=== PATIENT | male | born 1960 | race Caucasian/White ===

== ENCOUNTER → 2020-03-23 08:45 | Outpatient (CLI) | payer OTHER, SELFPAY ==
[2020-03-24 01:54] LABS: COVID19 Sendout Not Detected (Not Detect)
== END ==
PROVIDERS: Visit Provider Physician Assistant
DX: Z11.59 Encounter for screening for other viral diseases (principal)
CPT/HCPCS: 87635

== ENCOUNTER 2023-06-22 06:25 | Day surgery (SDC) | payer OTHER, SELFPAY ==
[2023-06-14 09:49] VITALS: BMI 33.7
[2023-06-22] VITALS (10 sets, daily range): BP systolic 92–137; BP diastolic 64–81; PULSE 52–75; RESP 12–24; TEMP 36.1–36.8; O2SAT 90–97; BMI 33.7
--- NOTE | 2023-06-22 06:00 | DI.RAD.S_ITS ---
PROCEDURE: XR KNEE LT 1TO2V INDICATIONS: TKA TECHNIQUE: 2 view(s) of the knee acquired. COMPARISON: [facility], , KNEE 1-2 VIEWS RIGHT, 02/26/2008, 8:13. FINDINGS: Bones: Patient is status post knee joint arthroplasty. Hardware components are in expected positions. Visualized bony structures are intact. Soft tissues: Overlying postoperative changes are noted. IMPRESSION: Satisfactory appearance of left total knee replacement. Dictated by: Bartolo Vega M.D. on 06/22/2023 at 12:10 Approved by: Bartolo Vega M.D. on 06/22/2023 at 12:12
[2023-06-22] MEDS: ACETAMINOPHEN 325 MG TABLET 975 MG PO (07:00)
[2023-06-22] MEDS: PREGABALIN 75 MG CAPSULE PO (07:01)
[2023-06-22] MEDS: LACTATED RINGERS 1,000 ML 42 ML IV (07:01)
[2023-06-22] MEDS: CELECOXIB 200 MG CAPSULE PO (07:01)
--- NOTE | 2023-06-22 07:16 | SUR.OPER ---
Supine on padded OR bed. Pillow under head, arms secured on padded armboards <90 degree abduction. Safety belt across torso. Non-operative leg secured with tape over blanket over lower leg. Operative leg secured in DeMayo/Leon/Nathe positioner. Foam padded brace at thigh of operative leg.
--- NOTE | 2023-06-22 07:25 | PM.PREOP ---
Pre-operative Note Interval Note History & Physical reviewed/Exam performed by Physician: Yes Changes to H&P: No
[2023-06-22] MEDS: CEFAZOLIN VIAL 3 GM in SODIUM CHLORIDE 0.9% 100 ML IV (07:50)
[2023-06-22] MEDS: TRANEXAMIC ACID 1,000 MG VIAL 1000 MG INJ ×2 (07:58→10:03)
[2023-06-22] MEDS: BUPIVACAINE LIPOSOME 266 MG/20 ML VIAL INJ (08:45)
[2023-06-22] MEDS: BUPIVACAINE 0.25% (PF) 60 ML, EPINEPHrine 0.3 MG INJ (08:45)
--- NOTE | 2023-06-22 10:09 | PM.OP.1 ---
Operative Date/Time/Diagnoses Date of procedure: 06/22/23 Time of procedure: 08:00 Pre-op diagnosis: Left knee arthritis Post-op diagnosis: same Procedure & Clinicians Procedure: Left total knee arthroplasty CPT code 26740 Same procedure as scheduled: Yes Indications: The patient is a 63-year-old male with end-stage [id number] knee arthritis. The patient has a significant varus knee arthritis. They have failed conservative treatment with activity modifications, injections, physical therapy and bracing. They has been indicated for total knee replacement. The risks and benefits of the procedure have been discussed with the patient even opportunity to ask questions. The risks of surgery include but are not limited to infection, malunion, nonunion, fracture, loosening, persistence of pain, damage to nerves and blood vessels, need for additional procedures, DVT, PE, cardiopulmonary complications and . The patient expressed a thorough understanding of the risks and benefits of surgery and has elected to proceed. Consent was signed During the operation the services of physician assembler surgical garment were medically indicated and necessary to provide the exposure of the operative site for the surgical procedure and to maintain the limb in a proper position to carry out the procedure safely and efficiently. Without a qualified temporary administrative assistant being present this would extend the operative procedure and would have made the procedure more technically difficult to perform. The assembler surgical garment was medically necessary for the proper positioning, retraction and manipulation of the limb, proper exposure, and manipulation of the tissue for implantation implants and closure. Surgeon: Bernice Urbano Screw Machine Operator Swiss Type: Thu Connor Anesthesia Type: General, Spinal and Local Operative Notes Findings: Tricompartmental knee arthritis severe involvement medial compartment consistent with a varus knee pattern arthritis Closure Type: primary Prosthetic devices, grafts, tissues, transplants, or devices: Cuadra and nephew journey bCS total knee. Femur Oxinium size 8, tibia size 6, poly 9 mm, patella 35 x 9 mm round Estimated Blood Loss (mL): 30 Blood products transfused: none Tourniquet time (min): 98 Procedure in detail: Patient was seen in the preoperative area where the patient and site of surgery were identified in the operative knee was marked informed consent confirmed. This was the left knee. Patient received the appropriate preoperative antibiotics this was 3 g of Ancef. And other preoperative medications and was taken to the operating room placed on operating table in the supine position. Spinal anesthetic were administered. The operative extremity was then prepped and draped in the standard sterile fashion with a nonsterile tourniquet high on the thigh. Patient was placed on the green foam bolsters. A lateral post was placed at the level of the proximal thigh /trochanter area as a lateral post. Formal time-out procedure was performed confirming the patient's side and site of surgery and administration of appropriate preoperative antibiotics and implants were in the room accounted for. All were in agreement. Patient received a preoperative dose of tranexamic acid and then a 2nd dose at tourniquet release Patient was prepped and draped in the standard sterile fashion and the foot was placed into the leg soler. This was taken into high flexion and the incision was marked out over the anterior knee to the level of the medial tubercle tubercle. The Esmarch was then used for exsanguination and the tourniquet was inflated to 250 mmHg. Was made through the skin and subcutaneous tissue in high flexion this was then brought down into 30? of flexion for the medial parapatellar arthrotomy. A marker pen was used to mohamud the arthrotomy site for later repair. Joint fluid was evacuated. The anterior osteophytes and soft tissues were removed. Routine medial release was initially made along the medial proximal tibia with Bovie. The patella was 1st cut using the saw sized and prepped and then subluxed throughout the case and protected. The leg was then taken into extension and the patella was everted and the patella was cut to accommodate the patellar button. This was sized to a 35 mm button for a 9 mm thickness to recreate the original dimensions of the patella. Poly was removed and the protector replaced and the patella was subluxed and the knee was taken back up into flexion and attention was returned to the femur. Then the rotational landmarks of Whitesides line and the trans epicondylar axis were marked on the femur with electrocautery. Then the intramedullary guide for the femur was created. The distal femoral cut was made in 6? of valgus using the intramedullary guide with the cut setting on 2+. The ACL and PCL released. The proximal tibia was then cut using the intramedullary guide, taking 9 mm off the less involved side this was the lateral plateau. The Clifford wing was used to check the slope through the guide. Second pass was made through the tibial cut guide with the saw after the cut tibia was removed plane down about 1 more mm and further smooth then the resection surface. In extension remainders of the medial and lateral menisci were removed. The extension flexion gaps were then checked using both the flexion extension blocks. And was selected for a 9 mm poly femur was then sized and the rotation set using the posterior condyle referencing 3? of external rotation. There was just a touch tight in flexion therefore the block was shifted 1 mm anteriorly. This was checked with the Clifford wing. This measured a size 8. Cut block was then placed and the anterior, posterior and chamfer cuts were then made. The posterior osteophytes and soft tissues were then removed. Then in extension the posterior capsule was injected with a mixture of 40 mL of 0.25% Marcaine and 20 mL of Exparel care to avoid excessive injection posterior laterally. The remainder of this was saved for the capsule and subcutaneous tissue and placed during cement curing. Attention was then returned to the tibia and this was prepared with the rotation set by the extramedullary guide. Lined up with the tibial crest and the 2nd toe. The tibial trial was then pinned in place and the trial femoral components were placed. Then the intercondylar notch was cut through the femoral trial to create the box this was done with the distal than the proximal drill and then the box cut distally and then proximally. Next the insert was placed and the trial poly placed. This was stable in flexion and extension and there was a 0-135 degree range of motion. The tibia was then finished with the drill and flange cuts and then this was removed. All trials were removed. The wound and bone was irrigated with pulsatile lavage. This was then dried with a sponge. The components were verified and opened and the cement was mixed. Cement was applied to the components and then to the bone then the tibia was cemented in place 1st followed by the femur then the patella. Excess cement was removed. With care looking around the back of the knee. Remainder of the injection was injected around the capsule. trial poly was placed back in the leg was placed into extension for the patellar cementing. After this was cured approximately 15 minutes later and the dilute Betadine solution was placed for at least 3 minutes in the wound this was then irrigated out and the final poly was placed. This was a 9 mm poly. The tourniquet was released hemostasis was achieved. Final g of tranexamic acid was given IV at the time of tourniquet release. The capsule was closed with 1. Ethibond suture. And the Quill stitch. Subcutaneous layer was closed with 3-0 Vicryl suture. Skin was closed with a running V lock suture Stratafix Monocryl type suture and Dermabond. An Aquacel dressing was placed. An Sherwin wrap was applied. Anesthetic was terminated the patient was woken from anesthesia and taken to recovery room in good condition. There no immediate complications from this procedure. The patient will be maintained on a standard total knee replacement protocol with weight-bearing as tolerated. Complications: none Post-operative Condition: stable Disposition: PACU Plan for aftercare: Weightbear as tolerated, range of motion immediately as tolerated. Commence physical therapy were then 1 week. May shower. Keep Aquacel part of dressing intact until follow-up. Take aspirin 81 mg b.i.d. for DVT prophylaxis for 6 weeks.
[2023-06-22] MEDS: OXYCODONE IR 5 MG TABLET PO ×3 (10:27→15:59)
[2023-06-22] MEDS: HYDROMORPHONE 1 MG INJ IV (10:32)
[2023-06-22] MEDS: LACTATED RINGERS 1,000 ML 100 ML IV (11:00)
[2023-06-22] MEDS: ACETAMINOPHEN 325 MG TABLET 650 MG PO (12:33)
--- NOTE | 2023-06-22 13:35 | PT.IIE ---
Current Diagnoses Unilateral primary osteoarthritis, left knee (06/22/23) Surgery Performed Operation Date: 06/22/23 07:45 Actual Procedures p Total Knee Arthroplasty(Left) - Bernice Urbano MD Surgical History (Last Updated 06/14/23 @ 10:09 by Aye Lopez, RN) Hx of appendectomy Hx of arthroscopy of right knee Hx of tonsillectomy Medical History (Last Updated 06/14/23 @ 10:09 by Aye Lopez RN) Hearing impaired HLD (hyperlipidemia) FABIANO on CPAP Osteoarthritis Tremor Physical Therapy Inpatient Evaluation/Re-Eval M1 PT/OT-IP Prior Functional Status Start: 06/22/23 14:56 Freq: NEEDED Status: Active Protocol: Document 06/22/23 13:35 AB (Rec: 06/22/23 15:16 AB [id number]) Medical Review Prior Functional Status Medical History Reviewed Yes Communication able to make needs known Mobility and Gait pt stated that he is indpenendent with all mmobilities and ambulation without AD Social History Household Members spouse Living Arrangements House Number of Floors (Floors) One Floor Number of Stairs To Enter/Railing? 6 steps to enter with B rails Home Environment High Toilet,Walk in Shower, Built-In Shower Seat Home Equipment Front Wheel Walker,Straight Cane M2 PT-IP Current Condition Start: 06/22/23 14:56 Freq: NEEDED Status: Active Protocol: Document 06/22/23 13:35 AB (Rec: 06/22/23 15:16 AB [id number]) Physical Therapy Current Condition Current Condition Evaluation Date 06/22/23 Treatment Diagnosis s/p L TKA; difficulty in walking Onset Date 06/22/23 M3 PT-IP Subjective Start: 06/22/23 14:56 Freq: NEEDED Status: Active Protocol: Document 06/22/23 13:35 AB (Rec: 06/22/23 15:16 AB [email or web address]) Subjective Physical Therapy Visit Type Type Initial Evaluation Visit Start Time 13:35 Visit Stop Time 14:51 Total Visit Minutes 76 Number of MEDICAL OFFICE WORKER Visits 0 Physical Therapy Visit Comments Patient Comments agreeable to do PT Therapy Pain Assessment Pain When Pain Assessed At Rest Pain Present Pain Present Pain Reported Location Left Knee Intensity 6 Scale Used Numeric (0 - 10) Description Spasm,Tightness Pain Management Techniques Distraction,Elevation, Modification of Treatment,Re- positioning,Timing of Activity with Medications M4 PT-IP Mobility and Gait Start: 06/22/23 14:56 Freq: NEEDED Status: Active Protocol: Document 06/22/23 13:35 AB (Rec: 06/22/23 15:16 AB [id number]) PT-Bed Mobility Assessment Supine to Sit Supine to Sit Standby Assistance PT-Transfer Assessment Sit to and From Stand Sit to and from Stand Contact Guard Assistance, Minimal Assistance,1 Person Assistance,Use of Upper Extremities Equipment Transfer Assistive Device Gait Belt,Front Wheeled Walker Orthotic/Prosthetic Devices or Brace: No Transfers Transfer Destination Chair Transfer Technique Stand Step Pivot Transfer Ability Level of Assist Contact Guard Assistance, Minimal Assistance,Use of Upper Extremities Comments Mobility Comments pt supine in bed. spouse in room. BP: 138/80. completed supine to sit SBA. able to sit on EOB SBA. c/o feeling sweaty/hot flashes. BP: 146/ 86. pt still without bladder control. assisted pt with brief management. pt completed sit to stand min A and cues and was able to maintain standing using FWW min A while assisted with brief. pt then completed step transfer to chair using FWW min A. (+) L knee slight buckling needing min A for stability. nurse provided pt with IV dilaudid. pt c/o feeling oozy afterwards. BP checked: 144/91. pt agreed to do more ambulation and stair climbing. educated pt regarding L quads activation. pt completed sit to stand from the chair CGA to min A and ambulated using FWW CGA to min A ~ 50 ft with cues for L quads activation. assited pt towards the stairs. educated pt and spouse regarding stair climbing techniques. pt's spouse stated that she had knee replacements before and is a nurse and that she knows how to assist pt. spouse was able to put safety belt on pt and assisted pt with sit to stand . pt completed up/down 3 steps using B rails min A with spouse assisting. pt repeated stair climbing again. pt ambulated back towards his room using FWW ~ 25 ft with spouse assisting. pt requiring increase time to complete all tasks and needs cues but alex was able to assist pt. assisted pt back to his room. spouse and pt without further concerns. OT took over pt's care. pt has outpt PT set up but stated that he did not get any pre-op PT . Gait Assessment Gait Gait Assistance Required: Contact Guard Assist,Minimum Assistance Distance (Feet) 50 Able to Maintain Weight Bearing Status Yes During Gait Assistive Devices Assistive Device Gait Belt,Front Wheeled Walker Orthotic/Prosthetic Devices or Brace: No Gait Deviations General Gait Pattern Antalgic,Decreased Stride Length,Decreased Feet Clearance,Step-to Gait Factors Limiting Gait Function Factors Limiting Gait Function Decreased Activity Tolerance, Decreased Strength,Limited Range of Motion,Pain,Poor Balance,Poor Safety Awareness Stair Climbing Assessment Evaluation Level of Assist On Stairs Minimal Assistance Devices Stair Climbing Assistive Devices Left Railing,Right Railing Technique/Endurance Stair Climbing Direction Ascend and Descend Stair Climbing Technique Step to Step Number of Steps Climbed 3 Query Text: Stair Climbing Set # Repetitions (reps) 2 PT-Balance Assessment Sitting Balance and Reactions Static Sitting Balance Ability Normal Dynamic Sitting Balance Ability Good Standing Balance and Reactions Static Standing Balance Ability Fair Dynamic Standing Balance Ability Fair Device Used FWW M5 PT-IP Objective Assessments Start: 06/22/23 14:56 Freq: NEEDED Status: Active Protocol: Document 06/22/23 13:35 AB (Rec: 06/22/23 15:16 AB [email or web address]) Orientation Orientation/Cognition Level of Alertness Alert Orientation Name,Place,Situation Language Function Ability No Deficits Noted Safety Awareness Understands Safety Issues Memory Description No Deficits Noted Gross Range of Motion Lower Extremity ROM Assessment Within Functional Limits Impairments L knee flexion: ~ 80 deg L knee extension: ~ 20 deg less to 0 Strength Lower Extremity Strength Assessment Left Impaired Hip 4-/5 Knee 3+/5 Coordination Assessment Gross Coordination Gross Coordination WNL Sensation Assessment Sensation Gross Sensation WNL Muscle Tone Muscle Tone WNL Yes M6 PT-IP Treatment Start: 06/22/23 14:56 Freq: NEEDED Status: Active Protocol: Document 06/22/23 13:35 AB (Rec: 06/22/23 15:16 AB [email or web address]) Physical Therapy Treatment Exercises Exercises Heel Slides Education Education Provided Precautions,Weight Bearing Status,Post-Op Packet,Safety M7 PT-IP Assessment and Plan Start: 06/22/23 14:56 Freq: NEEDED Status: Active Protocol: Document 06/22/23 13:35 AB (Rec: 06/22/23 15:16 AB [email or web address]) PT Summary Assessment and Plan Potential Rehabilitation Potential Fair Status of Condition at Evaluation Evolving Summary Impairments Pain,ROM,Strength,Balance,Bed Mobility,Transfers,Gait, Activity Tolerance Assessment Summary pt is a 63 y/o M who underwent L TKA and is WBAT. pt has outpt PT set up but did not receive any pre-op PT. pt requiring CGA to min A with mobility using FWW and caregiver training conducted. pt plans to go home with spouse to assist and spouse was able to safely assist. Goals Bed Mobility Goal Independent Transfer Goal Independent,Front Wheeled Walker Gait Goal Independent,Front Wheel Walker Gait Distance 250 Other Goals up/down 6 steps B rails mod I Days to Meet Goals 5 Frequency of Treatment Frequency Of Treatment Twice a Day Treatment Plan Physical Therapy Treatment Plan Bed Mobility Training,Transfer Training,Gait Training, Therapeutic Exercise,Balance Retraining,Post Op Education, Discharge Planning,Hot or Cold Pack,Neuromuscular Re-ed, Coordination Retraining,Manual Therapy Weight Bearing Status Weight Bearing Status Weight Bear as Tolerated Allowed Weight Bearing Amount (enter % LLE WBAT or #) (%) Recommendations To Nursing Amount of Assist Needed 1 Person Assist Discharge Recommendations PT Discharge Recommendations Home with Assistance, Outpatient PT Transportation Needs at Discharge Private Vehicle
[2023-06-22] MEDS: ONDANSETRON 4 MG/2 ML INJ IV (14:19)
[2023-06-22] MEDS: HYDROMORPHONE 0.5 MG INJ IV (14:19)
--- NOTE | 2023-06-22 15:15 | OT.IP.EVAL ---
Current Diagnoses Unilateral primary osteoarthritis, left knee (06/22/23) Surgery Performed Operation Date: 06/22/23 07:45 Actual Procedures p Total Knee Arthroplasty(Left) - Bernice Urbano MD Past Medical History (Last Updated 06/14/23 @ 10:09 by Aye Lopez RN) Hearing impaired HLD (hyperlipidemia) FABIANO on CPAP Osteoarthritis Tremor Surgical History (Last Updated 06/14/23 @ 10:09 by Aye Lopez RN) Hx of appendectomy Hx of arthroscopy of right knee Hx of tonsillectomy Occupational Therapy Inpatient Evaluation/Re-Eval M1 PT/OT-IP Prior Functional Status Start: 06/22/23 15:21 Freq: NEEDED Status: Active Protocol: Document 06/22/23 14:30 [facility] (Rec: 06/22/23 15:35 [facility] [id number]) Medical Review Prior Functional Status Medical History Reviewed Yes Communication able to make needs known Mobility and Gait pt stated that he is independent with all mobilities and ambulation without device Activities of Daily Living and IADL's Able to do . Social History Household Members none Living Arrangements House Number of Floors (Floors) One Floor Number of Stairs To Enter/Railing? 6 steps to enter with B rails Home Environment High Toilet,Walk in Shower, Built-In Shower Seat Home Equipment Front Wheel Walker,Straight Cane M2 OT-IP Current Condition Start: 06/22/23 15:21 Freq: Status: Active Protocol: Document 06/22/23 14:30 [facility] (Rec: 06/22/23 15:35 [facility] [id number]) Occupational Therapy Current Condition Current Condition Evaluation Date 06/22/23 Treatment Diagnosis S/P L TKA Diagnosis Onset Date 06/22/23 M3 OT- IP Subjective and Pain Start: 06/22/23 15:21 Freq: Status: Active Protocol: Document 06/22/23 14:30 [facility] (Rec: 06/22/23 15:35 [facility] [id number]) OT- Subjective Occupational Therapy Visit Type Type Initial Evaluation Visit Start Time 14:30 Visit Stop Time 15:13 Total Visit Minutes 43 Occupational Therapy Visit Comments Patient Comments Pt and pt's in the room and PT also present for stair training. Patient/Caregiver Goals To go home. OT Pain Assessment Pain When Pain Assessed At Rest Pain Present Pain Present Pain Reported Location Left Knee Intensity 5 Scale Used Numeric (0 - 10) M4 OT- IP ADL's Start: 06/22/23 15:21 Freq: Status: Active Protocol: Document 06/22/23 14:30 [facility] (Rec: 06/22/23 15:35 [facility] [id number]) OT [id number]-[id number]-[facility] General Evaluation Self-Feeding Ability Independent OT ADL-Grooming Comments OT Grooming Comments Not performed. OT ADL-Oral Care Comments Oral Care Comments Not performed. OT ADL-Dressing General Eval Lower Body Dressing Ability Maximum Assistance Areas Needing Assistance Socks Comments OT Dressing Comments Able to show pt use of LB dressing equipment of sock aid and community service aide. Educated pt to dress the LLE first and take out last. OT ADL-Toileting Comments OT Toileting Comments Suggested pt take a urinal home. Also to be mindful of his left knee positioning to be sure not to twist it while wiping. OT ADL-Bathing Comments OT Bathing Comments Pt has a built in seat and that his to assist and consider getting a shower chair if needed. A hand held shower spray would be beneficial. M5 OT- IP IADL's Start: 06/22/23 15:21 Freq: Status: Active Protocol: Document 06/22/23 14:30 [facility] (Rec: 06/22/23 15:35 [facility] [id number]) OT-Instrumental Activities of Daily Living Deficits IADL Deficits Identified Deficits Home Safety Awareness Awareness of Need for Assistance at Home Good Awareness Home Safety Comments Pt a little groggy and has a supportive that has had knee replacement before to assist him. Meal Preparation Meal Preparation Caregiver Provides Assist Telemarketing Representative Telemarketing Representative Caregiver Provides Assist M6 OT- IP Functional Cognition Start: 06/22/23 15:21 Freq: Status: Active Protocol: Document 06/22/23 14:30 [facility] (Rec: 06/22/23 15:35 [facility] [id number]) Cognitive Factors Limiting Selfcare Function Cognitive Ability Level of Alertness Alert,Drowsy Patient Orientation Name,Place,Situation Attention Span Ability Capable of Focused Attention, Capable of Sustained Attention Ability to Follow Commands Able to Follow One Step Commands Cognitive Comments Cognitive Assessment Comments Pt a little drowsy and just having Dilaudid and needing safety cues for FWW use and hand placement when coming to stand and sitting down. OT- Vision and Hearing OT- Hearing Assessment OT- Hearing Assessment WFL OT- Vision Assessment Visual Acuity Glasses All The Time M7 OT- IP Mobility and Balance Start: 06/22/23 15:21 Freq: Status: Active Protocol: Document 06/22/23 14:30 [facility] (Rec: 06/22/23 15:35 [facility] [id number]) OT- Bed Mobility Assessment Sit to Supine Sit to Supine Assist Contact Guard Assistance OT-Transfer Assessment Sit to and From Stand Sit to and from Stand Minimal Assistance Transfers Transfer Ability Minimal Assistance Technique Transfer Destination Bed,Wheelchair Devices Transfer Assistive Devices Gait Belt,Front Wheeled Walker Comments Mobility Comments KANDIS to stand and for transfers with FWW. OT- Balance Assessment Sitting Balance and Reactions Static Sitting Balance Ability Normal Dynamic Sitting Balance Ability Good Standing Balance and Reactions Static Standing Balance Ability Fair Dynamic Standing Balance Ability Fair M8 OT- IP Objective Assessments Start: 06/22/23 15:21 Freq: Status: Active Protocol: Document 06/22/23 14:30 [facility] (Rec: 06/22/23 15:35 [facility] [id number]) OT Gross Range of Motion Upper Extremity Range of Motion Assessment Within Functional Limits OT Strength Upper Extremity Strength Assessment Within Functional Limits M9 OT- IP Assessment and Plan Start: 06/22/23 15:21 Freq: Status: Active Protocol: Document 06/22/23 14:30 [facility] (Rec: 06/22/23 15:35 [facility] [id number]) OT Summary Assessment and Plan Potential Rehabilitation Potential Excellent Analytic Complexity at Evaluation Low Summary OT Impairments Pain,Strength,Balance, Functional Mobility,Dressing, Toileting,Bathing,Toilet Transfers,Shower Transfers Progress Towards Goals Progressing Toward Goals Assessment Summary Pt low complexity and main barriers are pain, steps, and a little groggy from pain medications at this time. Pt has a very supportive who has had knee replacement herself and able to demonstate good safety and understanding of how to assist pt for all ADL and mobility needs. Pt o go home with his when medically stable and have outpt PT. Goals Dressing Goal Independent,[employer],Sock Aid Toileting Goal Independent Bathing Goal Independent Toilet Transfer Goal Independent Shower Transfer Goal Independent Days to Meet Goals 7 Frequency of Treatment Frequency Of Treatment Once a Day Treatment Plan OT Treatment Plan ADL Training,Functional Mobility,Patient/Family Education,Discharge Planning Discharge Recommendations OT Discharge Recommendations Home with Assistance, Outpatient PT Home Equipment Needs LB dressing equipment Transportation Needs at Discharge Private Vehicle
[2023-06-22] MEDS: OXYCODONE IR 10 MG TABLET PO (15:23)
--- NOTE | 2023-06-22 16:46 | PC.NURSE ---
Pt A&Ox4 upon discharge, VVS, able to verbalize D/C instructions when to f/u with surgeon, how to care for surgical site/dressing. Pt's spouse verbalized understanding of D/C instructions. Pt's cellphone, clothing, and shoes present with pt at time of discharge. All questions and concerns addressed prior to discharge.
== END 2023-06-22 16:33 | disposition home or self-care (01) ==
LOC: OR 06:26 → AC 06:31
PROVIDERS: PCP Nurse Practitioner Family; Referring Provider Orthopaedic Surgery Foot and Ankle Surgery; Visit Provider Orthopaedic Surgery Foot and Ankle Surgery
PROC: 0SRD0JZ Replacement of Left Knee Joint with Synthetic Substitute, Open Approach (ICD-10-PCS; CPT 27447; principal; 2023-06-22 07:45)
DX: M17.12 Unilateral primary osteoarthritis, left knee (principal); M21.162 Varus deformity, not elsewhere classified, left knee
CPT/HCPCS: 27447; 73560; 97162; 97165; 97530; 97535; C1776; C9290; J0171; J0690; J1100; J1170; J2250; J2405; J2704; J3010